=== PATIENT | male | born 1995 | race Caucasian/White ===

== ENCOUNTER 2017-11-06 01:16 | Emergency (ER) | payer OTHER ==
[2017-11-06 01:23] VITALS: BP 130/81; PULSE 77; TEMP 98.6; BMI 25.1
[2017-11-06] MEDS ORDERED: ACETAMINOPHEN 650 MG/20.3 ML ORAL SOLUTION (CUPS) PO ONE (01:31)
[2017-11-06] MEDS ORDERED: RANITIDINE HCL 150 MG TABLET (FP) PO ONE (01:31)
[2017-11-06] MEDS ORDERED: MAG HYDROX/AL HYDROX/SIMETH 30 ML UNIT-DOSE CUP PO ONE (01:31)
[2017-11-06] MEDS ORDERED: SUCRALFATE 1 GM/10 ML UNIT DOSE CUPS PO ONE (01:32)
[2017-11-06] MEDS ORDERED: RANITIDINE HCL 150 MG TABLET (FP) ONE (01:33)
[2017-11-06] MEDS ORDERED: ACETAMINOPHEN 650 MG/20.3 ML ORAL SOLUTION (CUPS) ONE (01:34)
[2017-11-06] MEDS ORDERED: SUCRALFATE 1 GM/10 ML UNIT DOSE CUPS ONE (01:34)
[2017-11-06] MEDS ORDERED: MAG HYDROX/AL HYDROX/SIMETH 30 ML UNIT-DOSE CUP ONE (01:34)
--- NOTE | 2017-11-06 01:40 | PDOC ---
History of Present Illness - General Chief Complaint: Dysphagia Stated Complaint: DIFFICULTY SWALLOWING Time Seen by Provider: 11/06/17 01:19 History Source: Patient Exam Limitations: No Limitations - History of Present Illness Initial Comments: 11/06/17 01:36 22 yo M c/ no pmh p/w dysphagia since this evening. Woke up this morning and felt fine. Did not eat lunch today. Noted in the evening that he started to feel subjective dysphagia but denies throat pain, difficulty breathing. States "hard to initiate a swallow". Denies drooling, changes in voice. Was able to eat entire dinner meal (solid and liquids) without difficulty. Denies abdominal pain, chest pain, or shortness of breath. First time episode. Never had an endoscopy. No family history of GI diseases. Past History - Past Medical History Allergies/Adverse Reactions: Allergies Allergy/AdvReac Type Severity Reaction Status Date / Time No Known Allergies Allergy Unverified 12/27/11 13:23 Home Medications: Ambulatory Orders No Home Medications 0 dose .ROUTE UTDICT 12/27/11 Acetaminophen Oral Solution [Tylenol Oral Solution -] 650 mg PO Q4H #120 ml Diphenhydramine [Benadryl Oral Solution -] 25 mg PO Q6H PRN #280 ml 11/06/17 Famotidine/Ca Carb/Mag Hydrox [Pepcid Complete Tablet Chew] 1 each PO BID PRN # 20 tab.chew 11/06/17 Pantoprazole Suspension [Protonix Packets For Oral Suspension -] 40 mg PO DAILY PRN #30 packet 11/06/17 COPD: No - Immunization History Immunization Up to Date: Yes - Suicide/Smoking/Psychosocial Hx Smoking Status: No Smoking History: Never smoked Number of Cigarettes Smoked Daily: 0 Review of Systems - Review of Systems Able to Perform ROS?: Yes Comments:: 11/06/17 01:37 GENERAL/CONSTITUTIONAL: No fever or chills. No weakness. HEAD, EYES, EARS, NOSE AND THROAT: No change in vision. No ear pain or discharge. No sore throat. +dysphagia CARDIOVASCULAR: No chest pain or shortness of breath. RESPIRATORY: No cough, wheezing, or hemoptysis. GASTROINTESTINAL: No nausea, vomiting, diarrhea or constipation. GENITOURINARY: No dysuria, frequency, or change in urination. MUSCULOSKELETAL: No joint or muscle swelling or pain. No neck or back pain. SKIN: No rash NEUROLOGIC: No headache, vertigo, loss of consciousness, or change in strength/ sensation. ENDOCRINE: No increased thirst. No abnormal weight change. HEMATOLOGIC/LYMPHATIC: No anemia, easy bleeding, or history of blood clots. ALLERGIC/IMMUNOLOGIC: No hives or skin allergy. *Physical Exam - Vital Signs Last Vital Signs Temp Pulse Resp BP Pulse Ox 98.6 F 77 16 130/81 98 11/06/17 01:20 11/06/17 01:20 11/06/17 01:20 11/06/17 01:20 11/06/17 01:20 - Physical Exam Comments: 11/06/17 01:38 GENERAL: Awake, alert, and fully oriented, in no acute distress HEAD: No signs of trauma EYES: EOMI, sclera anicteric, conjunctiva clear ENT: Auricles normal inspection, hearing grossly normal, nares patent, oropharynx clear without exudates. Moist mucosa NECK: Normal ROM, supple LUNGS: Breath sounds equal, clear to auscultation bilaterally. No wheezes, and no crackles HEART: Regular rate and rhythm, normal S1 and S2, no murmurs, rubs or gallops ABDOMEN: Soft, nontender, No guarding, no rebound. No masses EXTREMITIES: Normal range of motion, no edema. No clubbing or cyanosis. No cords, erythema, or tenderness NEUROLOGICAL: Cranial nerves II through XII grossly intact. Normal speech, normal gait SKIN: Warm, Dry, normal turgor, no rashes or lesions noted. Medical Decision Making - Medical Decision Making 11/06/17 01:39 Vital Signs Temp Pulse Resp BP Pulse Ox 98.6 F 77 16 130/81 98 11/06/17 01:20 11/06/17 01:20 11/06/17 01:20 11/06/17 01:20 11/06/17 01:20 22 yo M c/ oropharyngeal dysphagia. However, nontoxic appearing and breathing comfortably. Occasionally, attempting to initiate a swallow here in the ED. However, able to tolerate solids and liquids. He is also protecting his airway. No chest pain or abdominal pain. Differential includes gastritis, GERD, esophagitis, esophageal spasms. Will trial GERD medications. Will also instruct patient that he will need an upper endoscopy for further evaluation. If patient reports feeling better after medications, will advise patient to pursue GI outpatient followup. 11/06/17 02:03 Pt reports feeling somewhat better However, tolerating PO and pt is nontoxic appearing. I advised the patient to follow up for an endoscopy. Return precautions given to the patient if unable to tolerate PO. *DC/Admit/Observation/Transfer Diagnosis at time of Disposition: Dysphagia Qualifiers: Dysphagia type: other dysphagia Qualified Code(s): R13.19 - Other dysphagia - Discharge Dispostion Disposition: HOME Condition at time of disposition: Stable - Prescriptions Prescriptions: Acetaminophen Oral Solution [Tylenol Oral Solution -] 650 mg PO Q4H #120 ml Diphenhydramine [Benadryl Oral Solution -] 25 mg PO Q6H PRN #280 ml PRN Reason: Pain Famotidine/Ca Carb/Mag Hydrox [Pepcid Complete Tablet Chew] 1 each PO BID PRN # 20 tab.chew PRN Reason: GERD Pantoprazole Suspension [Protonix Packets For Oral Suspension -] 40 mg PO DAILY PRN #30 packet PRN Reason: GERD - Referrals Referrals: Christian Carrillo [Primary Care Provider] - Deng Og MD [Staff Physician] - - Patient Instructions Printed Discharge Instructions: DI for Esophageal Dysphagia, DI for Oropharyngeal Dysphagia Additional Instructions: Please take the medications as prescribed. Please make an appointment with the GI physician. Call to schedule an appointment. If you are unable to swallow, please go to the ER. - Post Discharge Activity
[2017-11-06] MEDS ORDERED: PANTOPRAZOLE SOD 40 MG SUSPENSION PACKET PO ONE (02:02)
[2017-11-06] MEDS ORDERED: diphenhydrAMINE HCL 12.5 MG/5 ML UNIT-DOSE CUPS PO ONE (02:02)
[2017-11-06] MEDS ORDERED: diphenhydrAMINE HCL 12.5 MG/5 ML BULK BOTTLE ONE (02:06)
== END 2017-11-06 02:11 | disposition home or self-care (01) ==
LOC: FER 01:16
DX: R13.19 Other dysphagia (principal)
CPT/HCPCS: 99281-25